=== PATIENT | male | born 1935 | race Caucasian/White ===

== ENCOUNTER 2020-02-19 16:45 | Observation (INO) ==
[2020-02-19] MEDS ORDERED: Clindamycin 900 MG/D5W BAG 900 MG/50 ML BAG IVPB ONE (18:08)
[2020-02-19 18:40] LABS: ABS Eosinophils 0.3 10^3/ul (0-0.6); ABS Lymphocytes 0.8 10^3/ul (1.0-4.8); ABS Neutrophils 4.9 10^3/ul (1.5-7.7); Hematocrit 35 % (42-52); Hemoglobin 12.4 g/dL (14.0-18.0); Lymphocyte % 10.9 %; Mean Corpuscular HGB Conc 35 g/dL (31-36); Mean Corpuscular Hemoglobin 30 pg (27-31); Mean Corpuscular Volume 86 fL (80-94); Mean Platelet Volume 8.8 fL (7.4-10.4); Platelet Count 115 10^3/uL (150-450); Red Blood Count 4.08 10^6 /uL (4.18-5.48); Red Cell Distribution Width 17 % (10-15); White Blood Count 6.9 10^3/uL (3.5-10.8)
[2020-02-19 18:46] LABS: INR 2.24 (0.82-1.09)
[2020-02-19 18:57] LABS: ALT 15 U/L (7-52); AST 35 U/L (13-39); Albumin 3.2 g/dL (3.2-5.2); Albumin/Globulin Ratio 0.9 (1-3); Alkaline Phosphatase 99 U/L (34-104); Anion Gap 6 mmol/L (2-11); BUN/Creatinine Ratio 36.7 (8-20); Blood Urea Nitrogen 40 mg/dL (6-24); C Reactive Protein 93.56 mg/L (<8.01); CO2 Carbon Dioxide 25 mmol/L (22-32); Calcium 8.6 mg/dL (8.6-10.3); Chloride 106 mmol/L (101-111); EGFR Non-African American 64.4 (>60); Globulin 3.6 g/dL (2-4); Glucose 92 mg/dL (70-100); Potassium 4.2 mmol/L (3.5-5.0); Sodium 137 mmol/L (135-145); Total Protein 6.8 g/dL (6.4-8.9)
[2020-02-19] MEDS ORDERED: cefTRIAXone 2 GM ADDV.VIAL 2 GM in NS 0.9% 100 ml BAG 100 ML IV SCH (22:00)
[2020-02-19] MEDS ORDERED: Triamcinolone 0.025% OINT 15 GM TUBE TOPICAL PRN (22:08)
[2020-02-19] MEDS ORDERED: Vancomycin 1,000 MG in NS 0.9% 250 ml 250 ML IVPB ONE (22:31)
[2020-02-19 22:50] LABS: % Iron Saturation 9 % (15-55); Iron 23 ug/dL (50-212); Total Iron Binding Capacity 263 mcg/dL (250-450); Transferrin 188 mg/dL (203-362); Unsaturated Iron Binding < 248 ug/dL
[2020-02-19] MEDS ORDERED: Vancomycin per Pharmacy 1 EA NOTE FOLLOW UP SCH (23:00)
[2020-02-19 23:10] LABS: Ferritin 239.1 ng/mL (24-336)
[2020-02-20 06:32] LABS: ABS Eosinophils 0.3 10^3/ul (0-0.6); ABS Lymphocytes 0.9 10^3/ul (1.0-4.8); ABS Monocytes 0.7 10^3/ul (0-0.8); ABS Neutrophils 3.3 10^3/ul (1.5-7.7); Eosinophil % 5.5 %; Hematocrit 35 % (42-52); Hemoglobin 12.1 g/dL (14.0-18.0); Lymphocyte % 16.7 %; Mean Corpuscular HGB Conc 35 g/dL (31-36); Mean Corpuscular Hemoglobin 30 pg (27-31); Mean Corpuscular Volume 87 fL (80-94); Mean Platelet Volume 8.7 fL (7.4-10.4); Platelet Count 102 10^3/uL (150-450); Red Cell Distribution Width 17 % (10-15); White Blood Count 5.2 10^3/uL (3.5-10.8)
[2020-02-20 06:48] LABS: Anion Gap 6 mmol/L (2-11); BUN/Creatinine Ratio 34.4 (8-20); Blood Urea Nitrogen 31 mg/dL (6-24); CO2 Carbon Dioxide 24 mmol/L (22-32); Calcium 8.3 mg/dL (8.6-10.3); Chloride 107 mmol/L (101-111); EGFR African American 97.3 (>60); EGFR Non-African American 80.4 (>60); Glucose 100 mg/dL (70-100); Sodium 137 mmol/L (135-145)
[2020-02-20] MEDS: cefTRIAXone 1 gm/50 mL NS BAG 1 GM/50 ML BAG IVPB SCH (08:49)
[2020-02-20] MEDS ORDERED: Furosemide 20 mg/2 ml IV VIAL IV ONE (08:53)
[2020-02-20] MEDS: Vancomycin 750 MG in NS 0.9% 250 ml 250 ML IVPB SCH (12:32)
[2020-02-20 13:38] LABS: % Iron Saturation 13 % (15-55); Iron 34 ug/dL (50-212); Total Iron Binding Capacity 255 mcg/dL (250-450); Transferrin 182 mg/dL (203-362); Unsaturated Iron Binding < 240 ug/dL
[2020-02-21] MEDS: Vancomycin 750 MG in NS 0.9% 250 ml 250 ML IVPB SCH ×2 (01:12→14:18)
[2020-02-21 06:18] LABS: ABS Eosinophils 0.3 10^3/ul (0-0.6); ABS Lymphocytes 1.1 10^3/ul (1.0-4.8); ABS Monocytes 0.8 10^3/ul (0-0.8); ABS Neutrophils 3.4 10^3/ul (1.5-7.7); Eosinophil % 4.8 %; Hematocrit 35 % (42-52); Hemoglobin 12.2 g/dL (14.0-18.0); Mean Corpuscular HGB Conc 35 g/dL (31-36); Mean Corpuscular Hemoglobin 30 pg (27-31); Mean Corpuscular Volume 86 fL (80-94); Platelet Count 104 10^3/uL (150-450); Red Blood Count 4.09 10^6 /uL (4.18-5.48); Red Cell Distribution Width 17 % (10-15); White Blood Count 5.6 10^3/uL (3.5-10.8)
[2020-02-21 06:32] LABS: Calcium 8.4 mg/dL (8.6-10.3); EGFR African American 93.7 (>60); EGFR Non-African American 77.4 (>60); Potassium 3.9 mmol/L (3.5-5.0)
[2020-02-21] MEDS: cefTRIAXone 1 gm/50 mL NS BAG 1 GM/50 ML BAG IVPB SCH (08:52)
[2020-02-21] MEDS ORDERED: Vancomycin Trough Check NOTE FOLLOW UP ONE (12:30)
[2020-02-21 12:59] LABS: INR 2.49 (0.82-1.09)
[2020-02-21] MEDS ORDERED: Vancomycin 1,000 MG in NS 0.9% 250 ml 250 ML IVPB SCH ×2 (14:04→14:30)
[2020-02-21 17:32] VITALS: BP 148/81
[2020-02-24] MEDS ORDERED: Vancomycin Trough Check NOTE FOLLOW UP ONE (14:00)
== END 2020-02-21 17:10 | disposition home or self-care (01) ==
LOC: MED 16:45 → ED 16:45 → MED 02-20 00:11
PROVIDERS: ADMIT Internal Medicine; ATTEND Internal Medicine

== ENCOUNTER 2020-05-23 16:10 | Inpatient (IN) ==
[2020-05-23 17:32] LABS: Hematocrit 30 % (42-52); Hemoglobin 10.5 g/dL (14.0-18.0); Mean Corpuscular HGB Conc 35 g/dL (31-36); Mean Corpuscular Hemoglobin 33 pg (27-31); Mean Corpuscular Volume 95 fL (80-94); Red Cell Distribution Width 19 % (10-15); White Blood Count 6.9 10^3/uL (3.5-10.8)
[2020-05-23 17:39] LABS: INR 2.43 (0.82-1.09)
[2020-05-23 17:43] LABS: ALT 19 U/L (7-52); AST 28 U/L (13-39); Albumin 3.3 g/dL (3.2-5.2); Alkaline Phosphatase 96 U/L (34-104); Anion Gap 4 mmol/L (2-11); BUN/Creatinine Ratio 32.6 (8-20); Blood Urea Nitrogen 43 mg/dL (6-24); CO2 Carbon Dioxide 25 mmol/L (22-32); Calcium 8.5 mg/dL (8.6-10.3); Chloride 107 mmol/L (101-111); EGFR African American 62.5 (>60); EGFR Non-African American 51.7 (>60); Globulin 3.4 g/dL (2-4); Glucose 88 mg/dL (70-100); Potassium 4.6 mmol/L (3.5-5.0); Sodium 136 mmol/L (135-145); Total Protein 6.7 g/dL (6.4-8.9)
[2020-05-23 17:46] LABS: Troponin I 0.03 ng/mL (<0.03)
[2020-05-23 18:34] LABS: ABS Eosinophils 0.2 10^3/ul (0-0.6); ABS Lymphocytes 0.9 10^3/ul (1.0-4.8); ABS Neutrophils 4.8 10^3/ul (1.5-7.7); Eosinophil % 2.5 %; Lymphocyte % 12.8 %
[2020-05-23 18:42] LABS: Mean Platelet Volume 8.7 fL (7.4-10.4); Platelet Count 96 10^3/uL (150-450)
[2020-05-23] MEDS ORDERED: Furosemide 40 mg/4 ml IV VIAL IV ONE (20:12)
[2020-05-23] MEDS ORDERED: Senna TAB 8.6 mg TAB PO PRN (21:00)
[2020-05-23 22:47] LABS: Troponin I 0.03 ng/mL (<0.03)
[2020-05-24 06:57] LABS: INR 2.46 (0.82-1.09)
[2020-05-24 07:16] LABS: ABS Eosinophils 0.2 10^3/ul (0-0.6); ABS Lymphocytes 0.9 10^3/ul (1.0-4.8); ABS Monocytes 0.9 10^3/ul (0-0.8); ABS Neutrophils 4.8 10^3/ul (1.5-7.7); Eosinophil % 3.6 %; Hematocrit 33 % (42-52); Hemoglobin 11.5 g/dL (14.0-18.0); Lymphocyte % 13.1 %; Mean Corpuscular HGB Conc 35 g/dL (31-36); Mean Corpuscular Hemoglobin 33 pg (27-31); Mean Corpuscular Volume 95 fL (80-94); Mean Platelet Volume 9.2 fL (7.4-10.4); Nucleated Red Blood Cells % 0.1; Platelet Count 99 10^3/uL (150-450); Red Blood Count 3.49 10^6 /uL (4.18-5.48); Red Cell Distribution Width 18 % (10-15); White Blood Count 6.8 10^3/uL (3.5-10.8)
[2020-05-24 07:19] LABS: ALT 17 U/L (7-52); AST 28 U/L (13-39); Albumin 3.3 g/dL (3.2-5.2); Albumin/Globulin Ratio 0.9 (1-3); Alkaline Phosphatase 100 U/L (34-104); Anion Gap 7 mmol/L (2-11); BUN/Creatinine Ratio 30.1 (8-20); Blood Urea Nitrogen 41 mg/dL (6-24); CO2 Carbon Dioxide 24 mmol/L (22-32); Calcium 8.7 mg/dL (8.6-10.3); Chloride 109 mmol/L (101-111); EGFR African American 60.4 (>60); EGFR Non-African American 49.9 (>60); Globulin 3.6 g/dL (2-4); Glucose 78 mg/dL (70-100); Potassium 3.9 mmol/L (3.5-5.0); Sodium 140 mmol/L (135-145); Total Protein 6.9 g/dL (6.4-8.9)
[2020-05-24 07:24] LABS: LDH 258 U/L (140-271)
[2020-05-24] MEDS: Multivitamins/Minerals TAB PO SCH (10:03)
[2020-05-24 11:23] LABS: % Iron Saturation 16 % (15-55); Iron 52 ug/dL (50-212); Total Iron Binding Capacity 321 mcg/dL (250-450); Transferrin 229 mg/dL (203-362); Unsaturated Iron Binding < 306 ug/dL
[2020-05-24 11:44] LABS: Ferritin 118.6 ng/mL (24-336)
[2020-05-24 11:48] LABS: Vitamin B12 660 pg/mL (180-914)
[2020-05-24 17:46] LABS: Urine Appearance Cloudy; Urine Bilirubin Negative (Negative); Urine Blood Negative (Negative); Urine Color Amber; Urine Glucose Negative (Negative); Urine Ketones Negative (Negative); Urine Nitrite Negative (Negative); Urine Protein 1+(30 mg/dL) (Negative); Urine Specific Gravity 1.018 (1.010-1.030); Urine Urobilinogen Negative (Negative)
[2020-05-24 17:49] LABS: Urine Bacteria Absent (Absent); Urine Red Blood Cell 1+(3-5/hpf) (Absent); Urine Squamous Epithelial Cell Present (Absent); Urine White Blood Cell Absent (Absent)
[2020-05-24 18:08] LABS: C Reactive Protein 17.79 mg/L (<8.01)
[2020-05-25 07:08] LABS: ABS Eosinophils 0.3 10^3/ul (0-0.6); ABS Lymphocytes 1.2 10^3/ul (1.0-4.8); ABS Monocytes 0.8 10^3/ul (0-0.8); ABS Neutrophils 4.1 10^3/ul (1.5-7.7); Eosinophil % 4.4 %; Hematocrit 34 % (42-52); Hemoglobin 11.8 g/dL (14.0-18.0); Lymphocyte % 18.2 %; Mean Corpuscular HGB Conc 35 g/dL (31-36); Mean Corpuscular Hemoglobin 33 pg (27-31); Mean Corpuscular Volume 95 fL (80-94); Mean Platelet Volume 8.9 fL (7.4-10.4); Nucleated Red Blood Cells % 0.1; Platelet Count 100 10^3/uL (150-450); Red Blood Count 3.59 10^6 /uL (4.18-5.48); Red Cell Distribution Width 18 % (10-15); White Blood Count 6.4 10^3/uL (3.5-10.8)
[2020-05-25 07:15] LABS: INR 1.92 (0.82-1.09)
[2020-05-25 07:35] LABS: BUN/Creatinine Ratio 31.7 (8-20); Calcium 8.5 mg/dL (8.6-10.3); EGFR African American 67.8 (>60); EGFR Non-African American 56.1 (>60); Potassium 3.6 mmol/L (3.5-5.0)
[2020-05-25] MEDS: Multivitamins/Minerals TAB PO SCH (10:16)
[2020-05-25 12:31] LABS: Body Fluid Source Pleural Fluid
[2020-05-25 12:32] VITALS: BP 145/77
[2020-05-25 14:32] LABS: Body Fluid Mono 14 %
[2020-05-26 13:10] LABS: Lactate Dehydrogenase, BF 178 U/L
[2020-05-26 14:43] LABS: TB1 Ag minus Nil Result 0.03 IU/mL; TB2 Ag minus Nil Result 0.02 IU/mL
[2020-05-26 14:47] LABS: QuantiferonTb Gold Plus Result Negative (Negative)
[2020-05-26 14:48] LABS: Fluid Type, Protein, Total PLEURAL
[2020-05-26 15:02] LABS: Fluid Type, Glucose PLEURAL; Glucose, BF 94 mg/dL
== END 2020-05-25 16:50 | disposition home or self-care (01) | DRG 186 ==
LOC: ED 16:10 → MED 17:02
PROVIDERS: ADMIT Student in an Organized Health Care Education/Training Program; ATTEND Internal Medicine

== ENCOUNTER 2020-08-18 20:15 | Inpatient (IN) ==
[2020-08-18 22:16] LABS: ABS Eosinophils 0.2 10^3/ul (0-0.6); ABS Monocytes 0.9 10^3/ul (0-0.8); ABS Neutrophils 7.1 10^3/ul (1.5-7.7); Eosinophil % 2.1 %; Hematocrit 26 % (42-52); Hemoglobin 8.8 g/dL (14.0-18.0); Lymphocyte % 10.8 %; Mean Corpuscular HGB Conc 34 g/dL (31-36); Mean Corpuscular Hemoglobin 30 pg (27-31); Mean Corpuscular Volume 89 fL (80-94); Mean Platelet Volume 7.7 fL (7.4-10.4); Nucleated Red Blood Cells % 0.3; Platelet Count 140 10^3/uL (150-450); Red Blood Count 2.93 10^6 /uL (4.18-5.48); Red Cell Distribution Width 23 % (10-15); White Blood Count 9.2 10^3/uL (3.5-10.8)
[2020-08-18 22:18] LABS: INR 3.45 (0.82-1.09)
[2020-08-18 22:26] LABS: ALT 16 U/L (7-52); AST 26 U/L (13-39); Albumin 3.1 g/dL (3.2-5.2); Albumin/Globulin Ratio 0.8 (1-3); Alkaline Phosphatase 112 U/L (34-104); Anion Gap 6 mmol/L (2-11); Blood Urea Nitrogen 50 mg/dL (6-24); CO2 Carbon Dioxide 30 mmol/L (22-32); Calcium 8.7 mg/dL (8.6-10.3); Chloride 102 mmol/L (101-111); EGFR African American 60.9 (>60); EGFR Non-African American 50.4 (>60); Glucose 98 mg/dL (70-100); Magnesium 2.1 mg/dL (1.9-2.7); Potassium 4.6 mmol/L (3.5-5.0); Sodium 138 mmol/L (135-145); Total Protein 7.1 g/dL (6.4-8.9)
[2020-08-18 22:38] LABS: Troponin I 0.04 ng/mL (<0.03)
[2020-08-18 23:00] LABS: Polychromasia 2+
[2020-08-18] MEDS ORDERED: Iodixanol (CONTRAST) 320 MG/ML 100 ML SDV IV ONE (23:00)
[2020-08-18 23:02] LABS: TSH Ultra Thyroid Stim Horm 5.96 mcIU/mL (0.34-5.60)
[2020-08-18 23:31] LABS: Urine Appearance Clear; Urine Bilirubin Negative (Negative); Urine Blood Negative (Negative); Urine Color Yellow; Urine Glucose Negative (Negative); Urine Ketones Negative (Negative); Urine Nitrite Negative (Negative); Urine Protein Negative (Negative); Urine Specific Gravity 1.012 (1.010-1.030); Urine Urobilinogen Negative (Negative)
[2020-08-19] MEDS ORDERED: Ondansetron 4 mg VIAL 2 MG/ML 2 ml VIAL IV PRN (01:36)
[2020-08-19 06:39] LABS: INR 3.53 (0.82-1.09)
[2020-08-19 07:21] LABS: Troponin I 0.03 ng/mL (<0.03)
[2020-08-19 15:46] LABS: % Iron Saturation 15 % (15-55); Iron 44 ug/dL (50-212); Total Iron Binding Capacity 286 mcg/dL (250-450); Transferrin 204 mg/dL (203-362); Unsaturated Iron Binding < 271 ug/dL
[2020-08-19 16:08] LABS: Ferritin 253.1 ng/mL (24-336)
[2020-08-19 16:11] LABS: Folate > 20.00 ng/mL (>3.99)
[2020-08-19 16:12] LABS: Vitamin B12 682 pg/mL (180-914)
[2020-08-19 16:49] LABS: Cholesterol 91 mg/dL; HDL Cholesterol 27.3 mg/dL; LDL Cholesterol Direct 58 mg/dL
[2020-08-19 17:42] LABS: Triglycerides 67 mg/dL
[2020-08-19 18:42] LABS: Hematocrit 28 % (42-52); Hemoglobin 9.5 g/dL (14.0-18.0); Mean Corpuscular HGB Conc 34 g/dL (31-36); Mean Corpuscular Hemoglobin 30 pg (27-31); Mean Corpuscular Volume 88 fL (80-94); Mean Platelet Volume 7.7 fL (7.4-10.4); Platelet Count 163 10^3/uL (150-450); Red Cell Distribution Width 22 % (10-15); White Blood Count 8.9 10^3/uL (3.5-10.8)
[2020-08-20 05:21] LABS: ABS Eosinophils 0.3 10^3/ul (0-0.6); ABS Lymphocytes 0.8 10^3/ul (1.0-4.8); ABS Monocytes 0.9 10^3/ul (0-0.8); ABS Neutrophils 5.5 10^3/ul (1.5-7.7); Eosinophil % 3.9 %; Hematocrit 26 % (42-52); Hemoglobin 8.8 g/dL (14.0-18.0); Lymphocyte % 10.2 %; Mean Corpuscular HGB Conc 34 g/dL (31-36); Mean Corpuscular Hemoglobin 30 pg (27-31); Mean Corpuscular Volume 89 fL (80-94); Mean Platelet Volume 7.9 fL (7.4-10.4); Nucleated Red Blood Cells % 0.1; Platelet Count 132 10^3/uL (150-450); Red Blood Count 2.95 10^6 /uL (4.18-5.48); Red Cell Distribution Width 22 % (10-15); White Blood Count 7.5 10^3/uL (3.5-10.8)
[2020-08-20 05:28] LABS: INR 2.87 (0.82-1.09)
[2020-08-20 05:40] LABS: BUN/Creatinine Ratio 30.3 (8-20); Calcium 8.5 mg/dL (8.6-10.3); EGFR African American 68.5 (>60); EGFR Non-African American 56.6 (>60); Magnesium 2.2 mg/dL (1.9-2.7); Potassium 4.2 mmol/L (3.5-5.0)
[2020-08-20 11:08] LABS: Corrected Retic Count 3.5 % (0.5-1.5); Hematocrit for Retic CNT 28 % (42-52); Immature Retic Fraction 0.61; RBC Retic Count 2.97 10^6/uL (4.18-5.48)
[2020-08-20] MEDS ORDERED: Enoxaparin 100 MG/ML SYR SUBCUT SCH (14:00)
[2020-08-20 14:50] LABS: Free T4 1.54 ng/dL (0.61-1.12)
[2020-08-20] MEDS ORDERED: Warfarin - No Order Today **NOTE FOLLOW UP ONE (17:00)
[2020-08-20] MEDS: Enoxaparin 80 MG/0.8 ML SYR SUBCUT SCH (17:17)
[2020-08-21] MEDS: Enoxaparin 80 MG/0.8 ML SYR SUBCUT SCH ×2 (05:56→17:34)
[2020-08-21 07:46] LABS: Hematocrit 29 % (42-52); Hemoglobin 9.5 g/dL (14.0-18.0); Mean Corpuscular HGB Conc 33 g/dL (31-36); Mean Corpuscular Hemoglobin 30 pg (27-31); Mean Corpuscular Volume 90 fL (80-94); Mean Platelet Volume 7.9 fL (7.4-10.4); Platelet Count 131 10^3/uL (150-450); Red Blood Count 3.18 10^6 /uL (4.18-5.48); Red Cell Distribution Width 22 % (10-15); White Blood Count 6.5 10^3/uL (3.5-10.8)
[2020-08-21 08:01] LABS: BUN/Creatinine Ratio 28.4 (8-20); Calcium 8.5 mg/dL (8.6-10.3); EGFR Non-African American 64.4 (>60); Potassium 3.7 mmol/L (3.5-5.0)
[2020-08-21 08:15] LABS: INR 2.12 (0.82-1.09)
[2020-08-22 07:38] LABS: Hematocrit 28 % (42-52); Hemoglobin 9.3 g/dL (14.0-18.0); Mean Corpuscular HGB Conc 33 g/dL (31-36); Mean Corpuscular Hemoglobin 30 pg (27-31); Mean Corpuscular Volume 89 fL (80-94); Mean Platelet Volume 7.8 fL (7.4-10.4); Platelet Count 118 10^3/uL (150-450); Red Blood Count 3.16 10^6 /uL (4.18-5.48); Red Cell Distribution Width 22 % (10-15); White Blood Count 6.6 10^3/uL (3.5-10.8)
[2020-08-22 07:45] LABS: INR 1.72 (0.82-1.09)
[2020-08-22 08:01] LABS: BUN/Creatinine Ratio 21.3 (8-20); Calcium 8.3 mg/dL (8.6-10.3); EGFR African American 60.4 (>60); EGFR Non-African American 49.9 (>60); Magnesium 1.9 mg/dL (1.9-2.7); Potassium 3.8 mmol/L (3.5-5.0)
[2020-08-22] MEDS ORDERED: Magnesium Sulfate 2 gm BAG 2 GM/50 ML BAG IVPB ONE (08:42)
[2020-08-22 11:37] VITALS: BP 143/81
[2020-08-22] MEDS ORDERED: Warfarin DAILY REMINDER **NOTE FOLLOW UP SCH (17:00)
[2020-08-23 13:49] LABS: Albumin 2.8 g/dL (3.4-4.7); Albumin/Globulin Ratio 0.75; Gamma Globulin 2.1 g/dL (0.6-1.6); Total Protein(PEP) 6.6 g/dL (6.3 - 7.9)
[2020-08-23 17:11] LABS: Immunoglobulin A 383 mg/dL (61 - 356)
[2020-08-23 18:20] LABS: Gliadin IgA Deamidated <10.0 U
[2020-08-23 19:37] LABS: Tissue Transglutaminase IgA Ab <1.2 U/mL
[2020-08-24 13:22] LABS: Albumin 36 %; Albumin/Globulin Ratio 0.57 %; Gamma Globulin 30 %; Total Protein(PEP) Urine 23 mg/dL
== END 2020-08-22 13:40 | disposition home or self-care (01) | DRG 69 ==
LOC: ED 20:15 → MEDTELE 20:15 → INTOOBSV 08-19 01:36 → OBSVTOIN 08-19 01:36 → MEDTELE 08-19 04:35
PROVIDERS: ADMIT Internal Medicine; ATTEND Internal Medicine

== ENCOUNTER 2021-04-13 14:21 | Inpatient (IN) ==
[2021-04-13 15:26] LABS: PCO2 Arterial 38 mmHg (35-45); PO2 Arterial 79 mmHg (80-100)
[2021-04-13 15:29] LABS: ABS Eosinophils 0.4 10^3/ul (0-0.6); ABS Lymphocytes 0.7 10^3/ul (1.0-4.8); ABS Monocytes 1.3 10^3/ul (0-0.8); ABS Neutrophils 4.5 10^3/ul (1.5-7.7); Eosinophil % 6.3 %; Hematocrit 38 % (42-52); Hemoglobin 12.1 g/dL (14.0-18.0); Lymphocyte % 10.3 %; Mean Corpuscular HGB Conc 32 g/dL (31-36); Mean Corpuscular Hemoglobin 26 pg (27-31); Mean Corpuscular Volume 81 fL (80-94); Red Blood Count 4.69 10^6 /uL (4.18-5.48); Red Cell Distribution Width 18 % (10-15); White Blood Count 6.9 10^3/uL (3.5-10.8)
[2021-04-13 15:33] LABS: Activated Partial Thrombo Time 52.9 seconds (26.0-38.0); INR 3.9 (0.86-1.15)
[2021-04-13] MEDS ORDERED: Furosemide 40 mg/4 ml IV VIAL IV ONE (15:43)
[2021-04-13 15:48] LABS: Troponin I 0.04 ng/mL (<0.03)
[2021-04-13 15:59] LABS: Large Platelets Present; Mean Platelet Volume 9.4 fL (7.4-10.4); Platelet Count 97 10^3/uL (150-450)
[2021-04-13 16:11] LABS: ALT 17 U/L (7-52); AST 28 U/L (13-39); Albumin 3.3 g/dL (3.2-5.2); Albumin/Globulin Ratio 0.8 (1-3); Alkaline Phosphatase 153 U/L (35-149); Anion Gap 6 mmol/L (2-11); Blood Urea Nitrogen 51 mg/dL (6-24); C Reactive Protein 85.86 mg/L (<8.01); CO2 Carbon Dioxide 27 mmol/L (22-32); Calcium 8.9 mg/dL (8.6-10.3); Chloride 100 mmol/L (101-111); Creatine Kinase 75 U/L (10-223); EGFR African American 54.2 (>60); EGFR Non-African American 44.8 (>60); Globulin 4.2 g/dL (2-4); Glucose 87 mg/dL (70-100); Potassium 4.8 mmol/L (3.5-5.0); Sodium 133 mmol/L (135-145); Total Protein 7.5 g/dL (6.4-8.9)
[2021-04-13] MEDS ORDERED: Furosemide 40 mg/4 ml IV VIAL IV SLOW PU ONE (16:14)
[2021-04-13] MEDS ORDERED: Iodixanol (CONTRAST) 320 MG/ML 100 ML SDV IV ONE (16:23)
[2021-04-13 16:53] LABS: Rapid COVID-19 Molecular Undetected (Undetected)
[2021-04-13 17:12] LABS: Urine Appearance Clear; Urine Bilirubin Negative (Negative); Urine Blood Negative (Negative); Urine Color Straw; Urine Glucose Negative (Negative); Urine Ketones Negative (Negative); Urine Nitrite Negative (Negative); Urine Protein Negative (Negative); Urine Specific Gravity 1.005 (1.002-1.030); Urine Urobilinogen Negative (Negative)
[2021-04-13 19:28] LABS: Troponin I 0.03 ng/mL (<0.03)
[2021-04-13] MEDS ORDERED: Warfarin per PHARMACY **NOTE FOLLOW UP SCH (20:00)
[2021-04-13 22:06] LABS: TSH Ultra Thyroid Stim Horm 6.34 mcIU/mL (0.34-5.60)
[2021-04-13 22:27] LABS: Troponin I 0.03 ng/mL (<0.03)
[2021-04-14 08:21] LABS: ABS Eosinophils 0.5 10^3/ul (0-0.6); ABS Lymphocytes 0.6 10^3/ul (1.0-4.8); Eosinophil % 8.1 %; Hematocrit 35 % (42-52); Hemoglobin 11.3 g/dL (14.0-18.0); Lymphocyte % 10.3 %; Mean Corpuscular HGB Conc 33 g/dL (31-36); Mean Corpuscular Hemoglobin 26 pg (27-31); Mean Corpuscular Volume 79 fL (80-94); Mean Platelet Volume 9.4 fL (7.4-10.4); Platelet Count 94 10^3/uL (150-450); Red Cell Distribution Width 19 % (10-15); White Blood Count 6.2 10^3/uL (3.5-10.8)
[2021-04-14 08:34] LABS: Albumin 2.7 g/dL (3.2-5.2); Albumin/Globulin Ratio 0.7 (1-3); Calcium 8.5 mg/dL (8.6-10.3); Globulin 3.9 g/dL (2-4); Potassium 4.5 mmol/L (3.5-5.0); Total Bilirubin 0.7 mg/dL (0.2-1.0); Total Protein 6.6 g/dL (6.4-8.9)
[2021-04-14 09:17] LABS: INR 5.18 (0.86-1.15)
[2021-04-14] MEDS: Furosemide 40 mg/4 ml IV VIAL IV SCH (09:58)
[2021-04-14] MEDS ORDERED: Warfarin - No Order Today **NOTE FOLLOW UP ONE (17:00)
[2021-04-14] MEDS: Warfarin DAILY REMINDER **NOTE FOLLOW UP SCH (17:13)
[2021-04-15 07:51] LABS: ABS Eosinophils 0.5 10^3/ul (0-0.6); ABS Lymphocytes 0.7 10^3/ul (1.0-4.8); ABS Monocytes 1.1 10^3/ul (0-0.8); ABS Neutrophils 3.5 10^3/ul (1.5-7.7); Eosinophil % 8.7 %; Hematocrit 34 % (42-52); Hemoglobin 11.1 g/dL (14.0-18.0); Lymphocyte % 12.2 %; Mean Corpuscular HGB Conc 33 g/dL (31-36); Mean Corpuscular Hemoglobin 26 pg (27-31); Mean Corpuscular Volume 79 fL (80-94); Mean Platelet Volume 9.3 fL (7.4-10.4); Platelet Count 86 10^3/uL (150-450); Red Blood Count 4.24 10^6 /uL (4.18-5.48); Red Cell Distribution Width 19 % (10-15); White Blood Count 5.8 10^3/uL (3.5-10.8)
[2021-04-15 08:09] LABS: Albumin 2.7 g/dL (3.2-5.2); Albumin/Globulin Ratio 0.7 (1-3); Calcium 8.3 mg/dL (8.6-10.3); EGFR African American 46.9 (>60); EGFR Non-African American 38.8 (>60); Globulin 3.7 g/dL (2-4); Potassium 4.4 mmol/L (3.5-5.0); Total Bilirubin 0.7 mg/dL (0.2-1.0); Total Protein 6.4 g/dL (6.4-8.9)
[2021-04-15 08:20] LABS: INR 3.98 (0.86-1.15)
[2021-04-15] MEDS: Furosemide 40 mg/4 ml IV VIAL IV SCH (09:20)
[2021-04-15] MEDS: Warfarin DAILY REMINDER **NOTE FOLLOW UP SCH (16:38)
[2021-04-15] MEDS ORDERED: Warfarin - No Order Today **NOTE FOLLOW UP ONE (17:00)
[2021-04-16 07:01] LABS: ABS Eosinophils 0.5 10^3/ul (0-0.6); ABS Lymphocytes 0.8 10^3/ul (1.0-4.8); ABS Monocytes 1.1 10^3/ul (0-0.8); ABS Neutrophils 3.8 10^3/ul (1.5-7.7); Hematocrit 36 % (42-52); Hemoglobin 11.7 g/dL (14.0-18.0); Lymphocyte % 12.9 %; Mean Corpuscular HGB Conc 33 g/dL (31-36); Mean Corpuscular Hemoglobin 26 pg (27-31); Mean Corpuscular Volume 79 fL (80-94); Platelet Count 92 10^3/uL (150-450); Red Blood Count 4.53 10^6 /uL (4.18-5.48); Red Cell Distribution Width 19 % (10-15); White Blood Count 6.2 10^3/uL (3.5-10.8)
[2021-04-16 07:02] LABS: INR 3.36 (0.86-1.15)
[2021-04-16 07:16] LABS: Albumin 2.8 g/dL (3.2-5.2); Albumin/Globulin Ratio 0.7 (1-3); Calcium 8.5 mg/dL (8.6-10.3); EGFR African American 49.6 (>60); Potassium 4.2 mmol/L (3.5-5.0); Total Bilirubin 0.9 mg/dL (0.2-1.0); Total Protein 6.8 g/dL (6.4-8.9)
[2021-04-16] MEDS ORDERED: Furosemide 40 mg/4 ml IV VIAL IV SCH (16:00)
[2021-04-16] MEDS: Warfarin DAILY REMINDER **NOTE FOLLOW UP SCH (17:44)
[2021-04-17 07:32] LABS: ABS Eosinophils 0.3 10^3/ul (0-0.6); ABS Lymphocytes 0.8 10^3/ul (1.0-4.8); ABS Monocytes 1.3 10^3/ul (0-0.8); Eosinophil % 3.6 %; Hematocrit 34 % (42-52); Hemoglobin 11.3 g/dL (14.0-18.0); Lymphocyte % 9.5 %; Mean Corpuscular HGB Conc 33 g/dL (31-36); Mean Corpuscular Hemoglobin 26 pg (27-31); Mean Corpuscular Volume 78 fL (80-94); Mean Platelet Volume 8.7 fL (7.4-10.4); Platelet Count 89 10^3/uL (150-450); Red Blood Count 4.35 10^6 /uL (4.18-5.48); Red Cell Distribution Width 19 % (10-15); White Blood Count 8.4 10^3/uL (3.5-10.8)
[2021-04-17 07:38] LABS: INR 2.8 (0.86-1.15)
[2021-04-17 07:39] LABS: Calcium 8.3 mg/dL (8.6-10.3); EGFR African American 41.5 (>60); EGFR Non-African American 34.3 (>60); Potassium 4.1 mmol/L (3.5-5.0)
[2021-04-17 14:53] VITALS: BP 96/55
[2021-04-17] MEDS: Warfarin DAILY REMINDER **NOTE FOLLOW UP SCH (17:26)
== END 2021-04-17 17:55 | disposition home or self-care (01) | DRG 291 ==
LOC: ED 14:21 → MED 20:20 → SUATTDRO 20:20 → MED 22:04
PROVIDERS: ADMIT Internal Medicine; ATTEND Internal Medicine

== ENCOUNTER 2021-05-09 07:22 | Inpatient (IN) ==
[2021-05-09] MEDS ORDERED: Piperacillin/Tazobac ADVAN 3.375 GM in NS 0.9% 100 ml BAG 100 ML IVPB ONE (07:29)
[2021-05-09] MEDS ORDERED: Vancomycin 1,500 MG in NS 0.9% 250 ml 250 ML IVPB ONE (07:30)
[2021-05-09 08:16] LABS: ABS Eosinophils 0.3 10^3/ul (0-0.6); ABS Monocytes 1.3 10^3/ul (0-0.8); ABS Neutrophils 6.8 10^3/ul (1.5-7.7); Eosinophil % 3.4 %; Hematocrit 36 % (42-52); Hemoglobin 11.6 g/dL (14.0-18.0); Lymphocyte % 10.2 %; Mean Corpuscular HGB Conc 33 g/dL (31-36); Mean Corpuscular Hemoglobin 26 pg (27-31); Mean Corpuscular Volume 78 fL (80-94); Mean Platelet Volume 10.2 fL (7.4-10.4); Platelet Count 66 10^3/uL (150-450); Red Blood Count 4.54 10^6 /uL (4.18-5.48); Red Cell Distribution Width 20 % (10-15); White Blood Count 9.5 10^3/uL (3.5-10.8)
[2021-05-09 08:19] LABS: Activated Partial Thrombo Time 34.8 seconds (26.0-38.0); INR 1.99 (0.86-1.15)
[2021-05-09 08:28] LABS: Rapid COVID-19 Molecular Undetected (Undetected)
[2021-05-09 08:31] LABS: ALT 19 U/L (7-52); AST 31 U/L (13-39); Albumin/Globulin Ratio 0.7 (1-3); Alkaline Phosphatase 122 U/L (35-149); Anion Gap 4 mmol/L (2-11); Blood Urea Nitrogen 31 mg/dL (6-24); C Reactive Protein 15.05 mg/L (<8.01); CO2 Carbon Dioxide 35 mmol/L (22-32); Calcium 8.2 mg/dL (8.6-10.3); Chloride 94 mmol/L (101-111); Globulin 4.2 g/dL (2-4); Glucose 88 mg/dL (70-100); Potassium 3.9 mmol/L (3.5-5.0); Sodium 133 mmol/L (135-145); Total Protein 7.2 g/dL (6.4-8.9)
[2021-05-09 08:36] LABS: Troponin I 0.05 ng/mL (<0.03)
[2021-05-09 10:42] LABS: Urine Appearance Clear; Urine Bilirubin Negative (Negative); Urine Blood Negative (Negative); Urine Color Yellow; Urine Glucose Negative (Negative); Urine Ketones Negative (Negative); Urine Nitrite Negative (Negative); Urine Protein 1+(30 mg/dL) (Negative); Urine Specific Gravity 1.012 (1.002-1.030); Urine Urobilinogen Negative (Negative)
[2021-05-09 10:45] LABS: Urine Bacteria Absent (Absent); Urine Red Blood Cell Absent (Absent); Urine White Blood Cell Trace(0-5/hpf) (Absent)
[2021-05-09] MEDS ORDERED: Vancomycin 1,000 MG in NS 0.9% 250 ml 250 ML IVPB ONE (11:09)
[2021-05-09] MEDS ORDERED: NS 0.9% 500 ml BAG 500 ML IV ONE (11:17)
[2021-05-09] MEDS ORDERED: Vancomycin per Pharmacy 1 EA NOTE FOLLOW UP SCH (12:00)
[2021-05-09] MEDS: Cefepime 1 GM in Dextrose 1 GM/50 ML BAG IV SCH ×2 (15:23→23:10)
[2021-05-09] MEDS ORDERED: Acetaminophen IV 1 GM/100ML 100 ML IV PRN (16:00)
[2021-05-09 16:11] LABS: PCO2 Arterial 40 mmHg (35-45); PO2 Arterial 90 mmHg (80-100)
[2021-05-09] MEDS ORDERED: Warfarin per PHARMACY **NOTE FOLLOW UP SCH (17:00)
[2021-05-09 17:30] LABS: Urine Appearance Clear; Urine Bilirubin Negative (Negative); Urine Blood Negative (Negative); Urine Color Yellow; Urine Glucose Negative (Negative); Urine Ketones Trace (Negative); Urine Nitrite Negative (Negative); Urine Protein 1+(30 mg/dL) (Negative); Urine Specific Gravity 1.012 (1.002-1.030); Urine Urobilinogen Negative (Negative)
[2021-05-09 17:33] LABS: Urine Squamous Epithelial Cell Present (Absent)
[2021-05-09 18:20] LABS: Urine Amorphous Crystals Present (Absent); Urine Bacteria Absent (Absent); Urine Red Blood Cell Absent (Absent); Urine White Blood Cell Absent (Absent)
[2021-05-10 07:04] LABS: ABS Eosinophils 0.3 10^3/ul (0-0.6); ABS Lymphocytes 0.9 10^3/ul (1.0-4.8); ABS Monocytes 1.2 10^3/ul (0-0.8); ABS Neutrophils 9.2 10^3/ul (1.5-7.7); Eosinophil % 2.4 %; Hematocrit 36 % (42-52); Hemoglobin 11.5 g/dL (14.0-18.0); Lymphocyte % 7.4 %; Mean Corpuscular HGB Conc 32 g/dL (31-36); Mean Corpuscular Hemoglobin 26 pg (27-31); Mean Corpuscular Volume 79 fL (80-94); Mean Platelet Volume 10.2 fL (7.4-10.4); Platelet Count 63 10^3/uL (150-450); Red Blood Count 4.51 10^6 /uL (4.18-5.48); Red Cell Distribution Width 20 % (10-15); White Blood Count 11.5 10^3/uL (3.5-10.8)
[2021-05-10 07:21] LABS: Albumin 2.7 g/dL (3.2-5.2); Albumin/Globulin Ratio 0.7 (1-3); C Reactive Protein 96.06 mg/L (<8.01); Globulin 3.8 g/dL (2-4); Potassium 3.8 mmol/L (3.5-5.0); Total Bilirubin 1.1 mg/dL (0.2-1.0); Total Protein 6.5 g/dL (6.4-8.9)
[2021-05-10 08:51] LABS: INR 1.99 (0.86-1.15)
[2021-05-10] MEDS ORDERED: Vancomycin 750 MG in NS 0.9% 250 ML IVPB SCH (12:00)
[2021-05-10] MEDS: Cefepime 1 GM in Dextrose 1 GM/50 ML BAG IV SCH ×2 (12:43→23:34)
[2021-05-10] MEDS ORDERED: Warfarin DAILY REMINDER **NOTE FOLLOW UP SCH (17:00)
[2021-05-10] MEDS: Warfarin per PHARMACY **NOTE FOLLOW UP SCH (17:34)
[2021-05-11] MEDS ORDERED: Acetaminophen IV 1 GM/100ML 100 ML IV ONE (00:50)
[2021-05-11 05:55] LABS: ABS Eosinophils 0.3 10^3/ul (0-0.6); ABS Monocytes 1.3 10^3/ul (0-0.8); ABS Neutrophils 6.9 10^3/ul (1.5-7.7); Hematocrit 35 % (42-52); Hemoglobin 11.4 g/dL (14.0-18.0); Mean Corpuscular HGB Conc 33 g/dL (31-36); Mean Corpuscular Hemoglobin 26 pg (27-31); Mean Corpuscular Volume 78 fL (80-94); Mean Platelet Volume 9.1 fL (7.4-10.4); Platelet Count 55 10^3/uL (150-450); Red Blood Count 4.44 10^6 /uL (4.18-5.48); Red Cell Distribution Width 21 % (10-15); White Blood Count 9.5 10^3/uL (3.5-10.8)
[2021-05-11 06:03] LABS: INR 2.44 (0.86-1.15)
[2021-05-11 06:20] LABS: Albumin 2.6 g/dL (3.2-5.2); Albumin/Globulin Ratio 0.7 (1-3); Calcium 8.1 mg/dL (8.6-10.3); Globulin 3.9 g/dL (2-4); Potassium 3.7 mmol/L (3.5-5.0); Total Protein 6.5 g/dL (6.4-8.9)
[2021-05-11] MEDS: Cefepime 1 GM in Dextrose 1 GM/50 ML BAG IV SCH (13:06)
[2021-05-11] MEDS ORDERED: Acyclovir IV 500 MG/10 ML 100 ML VIAL (500 MG) IVPB SCH ×2 (16:00)
[2021-05-11] MEDS ORDERED: Lactated Ringers 500 ml BAG 500 ML IV SCH (17:00)
[2021-05-11] MEDS: Warfarin per PHARMACY **NOTE FOLLOW UP SCH (17:03)
[2021-05-11] MEDS: Acyclovir IV 650 MG in NS 0.9% 100 ml BAG 100 ML IVPB SCH (17:25)
[2021-05-11] MEDS ORDERED: NS 0.9% 500 ml BAG 500 ML IV ONE (17:46)
[2021-05-11] MEDS ORDERED: levETIRAcetam IV 1,500 MG in NS 0.9% 100 ml BAG 100 ML IVPB ONE (20:00)
[2021-05-11] MEDS: cefTRIAXone 2 GM ADDV.VIAL 2 GM in NS 0.9% 100 ml BAG 100 ML IV SCH (20:32)
[2021-05-11] MEDS ORDERED: Lorazepam PYXIS KEY PRN (20:51)
[2021-05-11] MEDS ORDERED: LORazepam 2 mg VIAL 1 ml IV PUSH ONE (20:52)
[2021-05-12 00:26] VITALS: BP 126/82
[2021-05-12] MEDS ORDERED: ATROPINE 1% SL PRN (01:43)
[2021-05-12] MEDS ORDERED: Acetaminophen IV 1 GM/100ML 100 ML IV ONE (01:45)
[2021-05-12] MEDS: Acyclovir IV 650 MG in NS 0.9% 100 ml BAG 100 ML IVPB SCH (03:47)
[2021-05-12] MEDS ORDERED: LORazepam 2 mg VIAL 1 ml IV PUSH PRN (05:36)
[2021-05-12] MEDS ORDERED: Atropine 1% (ORAL/SL) 15 ML BTL SL PRN (05:36)
[2021-05-12] MEDS: Morphine 2 MG/ML SYRINGE IV PRN ×3 (05:55→09:27)
[2021-05-12] MEDS: cefTRIAXone 2 GM ADDV.VIAL 2 GM in NS 0.9% 100 ml BAG 100 ML IV SCH (06:00)
[2021-05-12] MEDS ORDERED: levETIRAcetam 500 MG IVPREMIX 500 MG/100 ML BAG IVPB SCH (08:00)
[2021-05-12] MEDS ORDERED: Enoxaparin 60 MG/0.6 ML SYR SUBCUT SCH (09:00)
[2021-05-12] MEDS ORDERED: Vancomycin Trough Check NOTE FOLLOW UP ONE (11:30)
[2021-05-12] MEDS: Morphine ORAL CONCENTRATE 5 MG/0.25 ML ORAL.SYRIN SL PRN ×3 (12:09→20:04)
[2021-05-13 00:34] LABS: Anaplasma phagocytophilum Negative (Negative); B. miyamotoi PCR, B Negative (Negative); Babesia divergens/MO-1 Negative (Negative); Babesia ducani Negative (Negative); Ehrlichia chaffeensis Negative (Negative); Ehrlichia ewingii/canis Negative (Negative); Ehrlichia muris eauclairensis Negative (Negative)
== END 2021-05-12 22:25 | disposition expired | DRG 872 ==
LOC: ED 07:22 → SUATTDRO 11:10 → MED 11:10
PROVIDERS: ADMIT Internal Medicine; ATTEND Student in an Organized Health Care Education/Training Program